=== PATIENT | male | born 1955 | race Hispanic/Latino ===

== ENCOUNTER 2019-12-15 08:38 | Outpatient (CLI) | payer MEDICARE ==
--- NOTE | 2019-12-15 10:42 | Fluoroscopy Report ---
Barium swallow Indication: R13.10Dysphagia, unspecified/RECURRENT TROUBLE SWALLOWING. Technique: Single and double contrast barium technique utilized to evaluate the esophagus. Findings: To begin the exam, swallowing was evaluated in the lateral position under direct fluorosco py. Swallowing was normal. No mucosal irregularity, mass, mass effect, or critical stenosis. There is mild narrowing near the GE junction; however, there is no critical stenosis especially since a 13 mm barium tablet freely passe d beyond this region. There were no abnormal tertiary contractions as seen with dysmotility. No gastr oesophageal reflux. Impression: Lower esophageal findings as above. Otherwise unremarkable exam. Fluoroscopic time: 1.2 minutes Number of fluoroscopic images: 14 Signer Name: Constantino Madera MD Signed: 12/15/2019 10:38 AM Workstation Name: [id number]
== END 2019-12-15 08:39 | disposition home or self-care (01) ==
LOC: FLUORO 08:38
PROVIDERS: ATTEND Family Medicine
DX: R13.10 Dysphagia, unspecified (principal)
CPT/HCPCS: 74220